=== PATIENT | female | born 1995 | race Caucasian/White ===

== ENCOUNTER → 2016-07-09 | Outpatient (REF) | LOC: WSOH 16:18 | DX: Z02.89 Encounter for other administrative examinations (principal) ==

== ENCOUNTER 2021-09-26 13:24 | Outpatient (CLI) | payer BC ==
[~2021-09-26] VITALS: Ht 172.7 cm; Wt 74.1 kg
[2021-09-26] MEDS ORDERED: PRENATAL TABLET PO (13:49)
[2021-09-26 14:00] VITALS: BP 143/86; PULSE 90; TEMP 99.1
--- NOTE | 2021-09-26 14:00 | NUR ---
1330- Pt arrives on unit ambulatory with spouse, Silvano. Pt into bathroom to change into gown. 1335- Pt into bed, EFM and TOCO on and tracing well. O2 sat monitor on and tracing maternal HR. PT states she thought her water broke around 1100 this morning but has not noticed any fluid since then. She states they have been monitoring her fluid levels which have been low. Assessments completed. 1357- Amniotrace, Pt encouraged to cough, negative. SVE 2/70/-2, unchanged from her office visit on Tuesday, head ballotable, no fluid return noted, Membrances felt by this RN over head. Pt and informed and questions answered. Call light at bedside. RN to nurses station to call .
[2021-09-26 14:12] VITALS: PULSE 85
--- NOTE | 2021-09-26 14:12 | NUR ---
Pt and spouse updated on MD order to discharge home. Labor precautions and kick counts explained, questions answered. EFM and TOCO off. Pt up to change into street clothes. 1420- Pt ambulates off unit in stable condition.
== END 2021-09-26 14:20 | disposition home or self-care (01) ==
LOC: LDRO 13:24
DX: O26.893 Other specified pregnancy related conditions, third trimester (principal); Z3A.38 38 weeks gestation of pregnancy

== ENCOUNTER 2021-09-27 17:36 | Inpatient (IN) | payer BC ==
[2021-09-27] VITALS (18 sets, daily range): BP systolic 97–162; BP diastolic 43–94; PULSE 67–114; TEMP 98–98.7
[~2021-09-27] VITALS: Ht 172.7 cm; Wt 74.5 kg
[~2021-09-27 17:36] MED LIST: PRENATAL TABLET PO
--- NOTE | 2021-09-27 17:40 | NUR ---
1740- Pt arrives on unit ambulatory with spouse. Complaints of contractions every 3-5 mins. Pt changes into gown and into bed. EFM and TOCO on and tracing well. O2 sat monitor on and tracing maternal HR. Amniotrace negative, SVE 4/90/-1, intact. BP elevated, set to [id number].
--- NOTE | 2021-09-27 18:30 | NUR ---
18G IV started in left forearm with 1 attempt. Admission labs obtained off IV start. Lactated Ringers infusing to gravity. Consents reviewed and signed with patient and spouse. All questions answered.
[2021-09-27 19:30] LABS: COLLECTION METHOD CLEAN CATCH
[2021-09-27 19:35] LABS: BASO % 0.4 % (0.0-2.0); EOS # 0.1 K/mm3 (0.0-0.7); EOS % 0.9 % (0.0-4.0); GRAN # 3.7 K/mm3 (1.4-6.5); GRAN % 54.4 % (42.2-75.2); LYMPH # 2.4 K/mm3 (1.2-3.4); LYMPH % 34.6 % (20.0-51.0); MEAN CELL VOLUME 92 fl (80.0-100.0); MEAN CORPUSCULAR HEMOGLOBIN 31 pg (27-31); MEAN CORPUSCULAR HGB CONC 34 g/dl (33.0-37.0); MONO # 0.6 K/mm3 (0.1-0.6); MONO % 9.4 % (1.7-9.3); PLATELET COUNT 245 K/mm3 (130-400); REDCELL DISTRIBUTION WIDTH-CV 12.6 % (11.5-14.5)
[2021-09-27 19:36] LABS: HEMATOCRIT 32.3 % (37.0-47.0)
[2021-09-27 19:37] LABS: MUCOUS Present (NOT PRESENT); URINE BACTERIA None Seen /hpf (NONE SEEN); URINE RBC >50 /hpf (0-2)
[2021-09-27 19:40] LABS: URINE APPEARANCE Clear (CLEAR/HAZY); URINE BLOOD 2+ (NEGATIVE); URINE COLOR Yellow (YELLOW); URINE GLUCOSE Negative (NEGATIVE); URINE KETONE Negative (NEGATIVE); URINE NITRATE Negative (NEGATIVE); URINE PROTEIN(semi-quant) TRACE (NEGATIVE); URINE UROBILINOGEN 0.2 E.U/dL (0.2-1.0)
[2021-09-27 19:55] LABS: BILIRUBIN,TOTAL 0.3 mg/dL (0.2-1.2); CALCIUM 9.6 mg/dL (8.4-10.2); CREATININE, serum 0.64 mg/dL (0.57-1.11); POTASSIUM 3.5 mmol/L (3.5-4.5); TOTAL PROTEIN 6.4 gm/dL (6.2-8.1)
--- NOTE | 2021-09-27 20:05 | NUR ---
Category 1 FHR tracing obtained. Monitors off for intermittent monitoring. Pt requesting epidural at this time. [employer]ICATION[employer] LINESWORKER notified, will come to bedside.
--- NOTE | 2021-09-27 20:39 | NUR ---
2030 - Monitors back on. Pt positioned to sitting on edge of bed. JULIO Banrejee at bedside for epidural placement. Procedure, risks, and benefits reviewed, pt verbalized understanding. 2034 - Difficulty tracing FHR due to maternal positioning. Maternal HR tracing confirmed by pulse ox. 2038 - Single shot by JULIO Banerjee. Pt denies any adverse reactions. 2039 - Pt positioned to left lateral with pillow support. Safety precautions reviewed. Bed in low and locked position, call light within reach. See anesthesia record.
--- NOTE | 2021-09-27 21:15 | NUR ---
Saul catheter placed at this time to dependent drainage. Clear, yellow urine out. Secured to leg with statlock. SVE /-1. Pt positioned back to left lateral with peanut ball.
--- NOTE | 2021-09-27 21:30 | NUR ---
Dr. Mcqueen at bedside, SVE /0. Recommends to augment with pitocin due to unchanged cervix over last few hours and an increase in FHR. Pt agreeable to plan.
--- NOTE | 2021-09-27 21:45 | NUR ---
Pitocin initiated at 2 mu/min per Dr. Mcqueen. Dr. Mcqueen remains on unit.
--- NOTE | 2021-09-27 22:41 | NUR ---
2230 - Variable deceleration down to [address] Mcqueen to bedside, SVE complete/+2. Room set up for delivery. Pt educated on pushing techniques, verbalized understanding. Saul catheter removed, 350 urine out. 2235 - Initial push at this time with Dr. Mcqueen assessing progress. Moves baby well. Nursery nurse Ирина Claudio at bedside. 2237 - Dr. Mcqueen gowned and gloved, bed broken down for delivery. 2240 - Spontaneous vaginal delivery of girl. Infant placed on mothers abdomen, care of infant assumed to SIRISHA Chahal. Pitocin off. Delayed cord clamping for 1 minute. Cord then clamped x [address] Mcqueen and cut by FOB. Cord blood obtained. 2244 - Spontaneous delivery of intact placenta. Fundus firm and down [address] Mcqueen. Pitocin restarted at 333 mu/min per protocol. Second degree perineal laceration repaired by Dr. Mcqueen. 2300 - Pericare provided. New chux beneath patient. Ice pack to perineum. Pt positioned in bed for comfort. recovery started. See physician delivery note.
[2021-09-28] VITALS (7 sets, daily range): BP systolic 120–140; BP diastolic 66–86; PULSE 79–98; TEMP 97.9–98.9
--- NOTE | 2021-09-28 10:08 | NUR ---
Initial visit; Patient and Grandmother thanked Candle Wrapping Machine Operator for offering congratulations and God's blessings for the of their baby girl. Candle Wrapping Machine Operator thanked patient for choosing [place]. Mom said she has had a good experience here.
[2021-09-29 07:45] VITALS: BP 132/71; PULSE 88; TEMP 98.9
[2021-09-29] MEDS ORDERED: IBU800 M1 PO (08:37)
--- NOTE | 2021-09-29 11:15 | NUR ---
1055 - DISMISSED AMBULATORY WITH IN CARRIER, ACCOMPANIED BY SPOUSE AND RN
== END 2021-09-29 10:55 | disposition home or self-care (01) | DRG 807 ==
LOC: LDRO 17:36 → LDR 18:21 → OB 18:21
PROVIDERS: ADMIT Obstetrics & Gynecology
PROC: 10E0XZZ Delivery of Products of Conception, External Approach (ICD-10-PCS; principal; 2021-09-27)
PROC: 0KQM0ZZ Repair Perineum Muscle, Open Approach (ICD-10-PCS; 2021-09-27)
DX: O13.4 Gestational [pregnancy-induced] hypertension without significant proteinuria, complicating childbirth (principal); Z37.0 Single live birth; O62.0 Primary inadequate contractions; O70.1 Second degree perineal laceration during delivery; Z3A.38 38 weeks gestation of pregnancy; Z86.16 Personal history of COVID-19
CPT/HCPCS: J2590; J2795; J7120